=== PATIENT | male | born 1990 | race Hispanic/Latino ===

== ENCOUNTER 2016-10-31 10:59 | Emergency (ER) | payer OTHER ==
[~2016-10-31] VITALS: Ht 180.3 cm; Wt 125.0 kg
[2016-10-31 11:05] VITALS: PULSE 83; RESP 18; O2SAT 98
[2016-10-31 11:27] VITALS: BP 112/76
--- NOTE | 2016-10-31 11:28 | ED.REPORT ---
HPI-Abd Pain M Under 40 Date of Service Oct 31, 2016 ED Provider: Amandeep Interiano MD 25 year old male with a history of cholecystectomy presents to the ER complaining of RUQ pain suddenly onset 45-50 minutes ago. Pain waxes and wanes, and he rates it as 10/10 in severity at its worst. Symptoms are exacerbated by standing and movement. Associated symptom of nausea. Patient denies fever, vomiting, and current illness. Similar symptoms with prior cholelithiasis. Nursing Notes Stated Complaint: ABDOMINAL PAIN Chief Complaint: Male Abdominal Pain Nursing Notes Reviewed: Yes Allergies: Coded Allergies: No Known Allergies (Unverified , 10/31/16) General Time Seen by MD: 11:28 Chief Complaint Abdominal pain Hx Obtained From: Patient Arrived By: Walk-in Sudden in Onset?: Yes Onset Occurred: 46 - 59 minutes ago Symptom Duration: Since onset Progression since Onset: Unchanged Location: : LUQ Quality: Sharp Severity: Current: Moderate Severity: Maximum: Pain level 10 out of 10 Associated with: Reports: Nausea, Denies: Diarrhea, Fever, Vomiting Exacerbated by: Certain positions, Movement, Walking Relieved by: Supine Context Related History: Reports: Abdominal surgery, Cholecystitis Similar Sx Previous: Yes Past Medical History Past Medical History Cholelithiasis Past Surgical History Reports: Cholecystectomy Smoking History Never Smoker Social History 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 Physical Exam Initial Vital Signs Vital Signs (First) Date Time Temp Pulse Resp B/P Pulse Ox O2 Delivery O2 Flow Rate FiO2 10/31/16 11:05 35.9 83 18 98 10/31/16 11:27 112/76 10/31/16 12:09 Room Air Initial VS: Reviewed Head / Eyes: Atraumatic, Normocephalic Neck: Supple, Non-tender, Full range of motion Extremities: Vascular intact, Neuro intact, No swelling, No tenderness Skin: Warm, Dry, No cyanosis Neurologic: Alert, Oriented, Nonfocal General/Constitutional: Awake, Alert, Well appearing, Well developed Respiratory / Chest: Breath sounds NL, Breath sounds = bilat, No respiratory distress, No rales, No rhonchi, No wheezing, No stridor Cardiovascular: Heart rate NL, Regular rhythm, Heart sounds NL, Peripheral circulation NL Abdomen: Soft, No guarding, No rebound, No distention Tenderness/Guarding/Rebound: Positive: Tender RUQ... (Moderate) No mid-abdominal tenderness. Interpretation & Diagnostics Lab Results Interpretation Result Diagram: 10/31/16 1115 10/31/16 1115 Test 10/31/16 11:15 White Blood Count 8.6th/mm3 (3.8-10.1) Red Blood Count 5.12mil/mm3 (4.40-5.80) Hemoglobin 14.9g/dL (13.8-17.2) Hematocrit 43.1% (41.0-50.0) Mean Corpuscular Volume 84.2fL (81-100) Mean Corpuscular Hemoglobin 29.1pg (27.0-35.0) Mean Corpuscular Hemoglobin Concent 34.6% (32.0-37.0) Red Cell Distribution Width 12.6% (12.3-15.4) Platelet Count 232bil/L (150-400) Neutrophils (%) (Auto) 73.2% (40-74) Lymphocytes (%) (Auto) 14.7% (14-46) Monocytes (%) (Auto) 9.3% (4-12) Eosinophils (%) (Auto) 2.3% (0-5) Basophils (%) (Auto) 0.4% (0-3) Sodium Level 140mEq/L (134-144) Potassium Level 3.8mEq/L (3.5-5.2) Chloride Level 101mEq/L (97-108) Carbon Dioxide Level 23mmol/L (18-29) Blood Urea Nitrogen 10mg/dL (6-20) Creatinine 0.58mg/dL (0.76-1.27) Estimat Glomerular Filtration Rate 185mL/min (>59) Glucose Level 117mg/dL (60-99) Calcium Level 9.1mg/dL (8.5-10.1) Magnesium Level 1.9mg/dL (1.6-2.6) Total Bilirubin 0.3mg/dL (0.0-1.2) Aspartate Amino Transf (AST/SGOT) 55U/L (0-50) Alanine Aminotransferase (ALT/SGPT) 67U/L (0-44) Alkaline Phosphatase 90U/L (25-150) Total Protein 7.6g/dL (6.4-8.4) Albumin 4.7g/dL (3.4-5.0) Lipase 20U/L (13-60) Re-Eval/Medical Decision Source of Hx: Old records Re-Evaluation/Progress : Time of Eval: 13:16 Re-Evaluation/Progress Note: Discussed lab results and plan to discharge. Patient is amenable to the plan. Return precautions given. All other questions addressed. Counseled Regarding: Diagnosis, Lab results, Need for follow-up, When/why to return to ED Patient Discharge & Departure Primary Impression: Epigastric pain Disposition: Home Discharge Condition All VS Reviewed: Yes Condition: Stable Patient Instructions: Acute Abdominal Pain (ED) Additional Instructions: Your workup today was reassuring. I do not believe that there is any dangerous cause for your symptoms at this time. You have a mild elevation in your liver enzyme tests that needs specific follow-up in the coming days. We have scheduled you for a follow-up appointment with a primary care provider at the [facility] in [place] on November 02, 2016 at 10:30AM. Use ibuprofen or Tylenol as needed for pain and hydrocodone/APAP as needed for more severe pain, use ondansetron as needed for nausea. Return to the ER if you develop worsening symptoms, fever, chills, chest pain, shortness of breath, or any other concerning symptoms. Referrals: [facility] RYAN BURROUGHS Attestation Portions of this note were transcribed by Lucien Harrison. I, Dr. Interiano, personally performed the history, physical exam and medical decision-making; I reviewed and confirmed the accuracy of the information in the transcribed note. Signed by: Filiberto Del Angel, 10/31/2016 and 13:40 copies to: [facility] Kirk H MD Oct 31, 2016 11:28 LUCIEN HARRISON Oct 31, 2016 11:34
[2016-10-31] MEDS ORDERED: HYDROmorphone 1 mg/mL Inj IVPUSH PRN (11:35)
[2016-10-31] MEDS ORDERED: Ondansetron 2 mg/mL 2 mL Inj IVPUSH PRN (11:35)
[2016-10-31 11:36] LABS: BASOPHILS % (AUTO) 0.4 % (0-3); EOSINOPHILS % (AUTO) 2.3 % (0-5); MONOCYTES % (AUTO) 9.3 % (4-12); Mean Corpuscular Hemoglobin 29.1 pg (27.0-35.0); Mean Corpuscular Volume 84.2 fL (81-100); NEUTROPHILS % (AUTO) 73.2 % (40-74); Platelet Count 232 bil/L (150-400)
[2016-10-31 11:58] LABS: Magnesium 1.9 mg/dL (1.6-2.6)
[2016-10-31 12:09] VITALS: BP 144/71; PULSE 78; RESP 16; O2SAT 99
[2016-10-31] MEDS ORDERED: HYDR-4003 PO (13:44)
[2016-10-31] MEDS ORDERED: ONDA4TAB9 PO (13:44)
[2016-10-31 13:52] VITALS: BP 122/74; PULSE 81; RESP 12; O2SAT 97
== END 2016-10-31 13:54 | disposition home or self-care (01) ==
LOC: SED 10:59
DX: R10.13 Epigastric pain (principal); R11.0 Nausea; Z90.49 Acquired absence of other specified parts of digestive tract
CPT/HCPCS: 36415; 80053; 83690; 83735; 85025; 96374; 96375; 99284; J1170; J2405